=== PATIENT | female | born 1935 | race Caucasian/White ===

== ENCOUNTER 2018-05-22 17:14 | Emergency (ER) | payer MEDICARE ==
[~2018-05-22] VITALS: Ht 154.9 cm; Wt 61.7 kg
[2018-05-22 19:46] VITALS: BP 147/88
[2018-05-22] MEDS ORDERED: ketorolac trometh inj. 60 MG/2 ML VIAL IM ONE (20:20)
[2018-05-22 20:30] LABS: CLARITY,URINE CLEAR (Clear); COLOR,URINE YELLOW (Yellow); GLUCOSE, URINE NEGATIVE (Neg); KETONES,URINE NEGATIVE (Neg); LEUKOCYTE ESTERASE ,URINE TRACE (Neg); NITRITES, URINE NEGATIVE (Neg); OCCULT BLOOD,URINE NEGATIVE (Neg); PH,URINE 5.5 (4.8-8.0); PROTEIN,URINE NEGATIVE (Neg); UROBILINOGEN,URINE 0.2 E.U/dL (0.2-1.0)
[2018-05-22 20:35] LABS: UA COLLECTION TYPE CLN CATCH MIDSTREAM
[2018-05-22 20:36] LABS: BACTERIA,URINE 4+ /HPF (Neg); RBC,URINE 0-2 /HPF (0-2); SQUAMOUS EPITHELIAL CELL,UR FEW /LPF (FEW); WBC,URINE 0-4 /HPF (0-4)
[2018-05-22] MEDS ORDERED: CEPH500C5 PO ×2 (21:36→22:15)
[2018-05-22] MEDS ORDERED: cephalexin 500mg capsule PO ONE (21:40)
== END 2018-05-22 22:22 | disposition home or self-care (01) ==
LOC: ER 17:15
DX: N39.0 Urinary tract infection, site not specified (principal); G89.29 Other chronic pain; Z88.1 Allergy status to other antibiotic agents; Z79.2 Long term (current) use of antibiotics; M54.89 Other dorsalgia
CPT/HCPCS: 71046; 81001; 93005; 96372; 99285; J1885